=== PATIENT | female | born 1980 | race Caucasian/White ===

== ENCOUNTER 2017-09-23 10:10 | Emergency (ER) | payer OTHER ==
[2017-09-23 10:17] VITALS: BP 121/75
[2017-09-23] MEDS ORDERED: FENTANYL CITRATE INJ/PF 100 MCG/2 ML AMPUL IV ONE (10:26)
[2017-09-23] MEDS ORDERED: ASPIRIN 81 MG TABLET, CHEWABLE PO ONE (10:26)
--- NOTE | 2017-09-23 10:26 | ER Document Report ---
ED Medical Screen (RME) - General Chief Complaint: Chest Pain Stated Complaint: CHEST PAIN Time Seen by Provider: 09/23/17 10:22 Notes: RAPID MEDICAL EVALUATION DISCLOSURE I have seen this patient as part of a Rapid Medical Evaluation and, if applicable, placed any initially appropriate orders. The patient will be seen and fully evaluated, including a full history and physical exam, by a provider ( in Main ED or Fast Track) when a room becomes available. 37-year-old female recently diagnosed with right upper extremity DVT and placed on Xarelto 4 days ago (has not taken today's dose yet) here with complaints of sudden onset midsternal nonradiating chest pain and shortness of breath that started while she was at [facility] this morning. The pain is worse with breathing but not with exertion. She has no prior history of PE but she does have protein C disorder. EXAM CTAB, minimally tachypneic low 20s Minimally tachycardic, low 100s TRAVEL OUTSIDE OF THE [place] IN LAST 30 DAYS: No - Related Data Allergies/Adverse Reactions: povidone-iodine [From Betadine] Adverse Reaction (Verified 09/23/17 10:23) soap [From Betadine] Adverse Reaction (Verified 09/23/17 10:23) Past Medical History - Social History Frequency of alcohol use: None Drug Abuse: None Renal/ Medical History: Denies: Hx Peritoneal Dialysis Physical Exam - Vital signs Vitals: Temp Pulse Resp BP Pulse Ox 97.9 F 102 H 28 H 121/75 98 09/23/17 10:15 09/23/17 10:15 09/23/17 10:15 09/23/17 10:15 09/23/17 10:15 Course - Vital Signs Vital signs: Temp Pulse Resp BP Pulse Ox 97.9 F 102 H 28 H 121/75 98 09/23/17 10:15 09/23/17 10:15 09/23/17 10:15 09/23/17 10:15 09/23/17 10:15
[2017-09-23 11:03] LABS: ABSOLUTE BASOPHILS # (AUTO) 0.1 10^3/uL (0.0-0.2); ABSOLUTE EOSINOPHILS # (AUTO) 0.2 10^3/uL (0.0-0.6); ABSOLUTE LYMPHOCYTES (AUTO) 2.4 10^3/uL (0.5-4.7); ABSOLUTE MONOCYTES (AUTO) 0.7 10^3/uL (0.1-1.4); ABSOLUTE NEUT (AUTO) 5.7 10^3/uL (1.7-8.2); BASOPHILS % (AUTO) 0.6 % (0-2); EOSINOPHILS % (AUTO) 2.4 % (0-6); HEMATOCRIT 39.6 % (36.0-47.0); HEMOGLOBIN 13.1 g/dL (12.0-15.5); LYMPHOCYTES % (AUTO) 26.1 % (13-45); MEAN CORPUSCULAR HEMOGLOBIN 30.3 pg (27.0-33.4); MEAN CORPUSCULAR VOLUME 92 fl (80-97); MONOCYTES % (AUTO) 8.2 % (3-13); PLATELET COUNT 314 10^3/uL (150-450); RED BLOOD COUNT 4.32 10^6/uL (3.72-5.28); SEGMENTED NEUTROPHILS % (AUTO) 62.7 % (42-78); TOTAL CELLS COUNTED % (AUTO) 100 %
[2017-09-23 11:05] LABS: PROTHROMBIN TIME 13.7 SEC (11.4-15.4)
[2017-09-23 11:06] LABS: PARTIAL THROMBOPLASTIN TIME 31.9 SEC (23.5-35.8)
[2017-09-23 11:25] LABS: ANION GAP 11 (5-19); BLOOD UREA NITROGEN 16 mg/dL (7-20); CALCIUM 9.7 mg/dL (8.4-10.2); CARBON DIOXIDE 27 mmol/L (22-30); CHLORIDE 104 mmol/L (98-107); GLUCOSE 105 mg/dL (75-110); POTASSIUM 4.6 mmol/L (3.6-5.0); SODIUM 142.4 mmol/L (137-145)
--- NOTE | 2017-09-23 12:11 | ER Document Report ---
ED Cardiac - General Chief Complaint: Chest Pain Stated Complaint: CHEST PAIN Time Seen by Provider: 09/23/17 10:22 Notes: Patient is a 37 year old female who presents to the ED with PMH s/f RUE DVT diagnosed on saturday on Xarelto 10mg and Keflex complaining of sudden onset chest pain this am. She states she had gone to her allergy shots at approximately 10 AM and was driving to [employer] when she had sudden onset substernal chest pain, aching pressure. She states history of remote trying to catch her breath. She states that the pain is worse with deep inhalation. States that she drove over here she was too scared to drive to enable to significant pain. Past medical history significant for protein C deficiency that has led her to DVT in the past. She was previously on baby aspirin prior to diagnosis of the blood clots on Saturday and placed on the 10 mg of Xarelto. Otherwise she has a history of hypertension, hyperlipidemia. 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 Primary care is with naval TRAVEL OUTSIDE OF THE [place] IN LAST 30 DAYS: No - Related Data Allergies/Adverse Reactions: povidone-iodine [From Betadine] Adverse Reaction (Verified 09/23/17 10:23) soap [From Betadine] Adverse Reaction (Verified 09/23/17 10:23) Past Medical History - Social History Smoking Status: Never Smoker Frequency of alcohol use: None Drug Abuse: None Family History: Reviewed & Not Pertinent Patient has suicidal ideation: No Patient has homicidal ideation: No Renal/ Medical History: Denies: Hx Peritoneal Dialysis Review of Systems - Review of Systems Constitutional: No symptoms reported Cardiovascular: See HPI Respiratory: See HPI Gastrointestinal: No symptoms reported Musculoskeletal: No symptoms reported -: Yes All other systems reviewed and negative Physical Exam - Vital signs Vitals: Temp Pulse Resp BP Pulse Ox 97.9 F 102 H 28 H 121/75 98 09/23/17 10:15 09/23/17 10:15 09/23/17 10:15 09/23/17 10:15 09/23/17 10:15 - Notes Notes: PHYSICAL EXAM GENERAL: Alert, interacts well. HEAD: Normocephalic, atraumatic. EYES: Pupils equal, round, and reactive to light. Extraocular movements intact. ENT: Oral mucosa moist, tongue midline. NECK: Full range of motion. Supple. Trachea midline. LUNGS: Clear to auscultation bilaterally, no wheezes, rales, or rhonchi. No respiratory distress. HEART: Regular rate and rhythm. No murmurs, gallops, or rubs. EXTREMITIES: Moves all 4 extremities spontaneously. No edema, radial and dorsalis pedis pulses 2/4 bilaterally. No cyanosis. NEUROLOGICAL: Alert and oriented x4. Normal speech. PSYCH: Normal affect, normal mood. SKIN: Warm, dry, normal turgor. No rashes or lesions noted. Course - Re-evaluation Re-evalutation: 09/23/17 12:35 Patient is a 37-year-old female presents emergency room the chief complaint of sudden onset shortness of breath and chest pain. CTA of the chest and reviewed with radiologist show that she has a PE in the right upper lobe and the right lower lobe. Patient is not hypoxic and blood pressure is at her baseline per the patient. She was ambulated without any hypoxia. Reviewed case with warp dyeing vat tender on-call Dr. Elizabeth who agrees that patient to be initiated on standard Xarelto PE treatment of 15 mg twice daily. She is to follow-up with primary care tomorrow when she really has an established appointment and referral for Dr. Russell. Patient agrees to plan otherwise discussed strict return precautions and stable for discharge home - Vital Signs Vital signs: Temp Pulse Resp BP Pulse Ox 97.9 F 102 H 28 H 121/75 98 09/23/17 10:15 09/23/17 10:15 09/23/17 10:15 09/23/17 10:15 09/23/17 10:15 - Laboratory Result Diagrams: 09/23/17 10:35 09/23/17 10:35 - Diagnostic Test Radiology reviewed: Image reviewed, Reports reviewed - EKG Interpretation by Me EKG shows normal: Sinus rhythm Rate: Normal Rhythm: NSR When compared to previous EKG there are: No significant change Discharge - Discharge Clinical Impression: Pulmonary embolism Qualifiers: Chronicity: acute Acute cor pulmonale presence: without acute cor pulmonale Condition: Good Disposition: HOME, SELF-CARE Additional Instructions: You do have evidence of a blood clot in your lung in your right upper and right lower lobe. This is causing your chest pain. Your Xarelto dose has been increased to treat this properly. You are encouraged to keep your primary care appointment with your PCM tomorrow. Please take 10mg (one half tablet of your 20mg tablet) of you lisinopril. PLease follow up with Dr. Elizabeth after referral from your PCM Prescriptions: Morphine Sulfate [Morphine Ir 15 Mg Tablet] 15 mg PO BID #6 tablet Rivaroxaban [Xarelto] 15 mg PO BID 21 Days tablet Referrals: ALEM ELIZABETH MD [ACTIVE STAFF] - Follow up tomorrow
--- NOTE | 2017-09-23 12:19 | RADIOLOGY REPORT (SQ) ---
EXAM DESCRIPTION: CTA CHEST COMPLETED DATE/TIME: 09/23/2017 12:02 pm REASON FOR STUDY: RUE DVT 4d ago, now CP; eval PE shortness of breath, chest pain, painful respirati on COMPARISON: None. TECHNIQUE: CT scan of the chest performed using helical scanning technique with dynamic intravenous contrast injection. Images reviewed with lung, soft tissue and bone windows. Reconstructed coronal and sagittal MPR images reviewed. Additional 3 dimensional post-processing performed to develop Maximal Intensity Projection images (MO P). All images stored on PACS. All CT scanners at this facility use dose modulation, iterative reconstruction, and/or weight based d osing when appropriate to reduce radiation dose to as low as reasonably achievable (ALARA). [facility]: Dose Right [facility]: CareDose [facility]: Dose Right [facility]: Teradose 4D [facility]: SmartMenuCard CONTRAST TYPE AND DOSE: 82.5 mL of IV Isovue 370- low osmolar. Contrast bolus adequate for pulmonary arteries and aorta. RENAL FUNCTION: Creatinine 0.7 RADIATION DOSE: 59 mGy . LIMITATIONS: None. FINDINGS: LUNGS AND PLEURA: No masses, infiltrates, pneumothorax. No pleural effusions, calcificati ons. AORTA AND GREAT VESSELS: No aneurysm or dissection. HEART: No pericardial effusion. No significant coronary artery calcifications. PULMONARY ARTERIES: Emboli are present in the right middle lobe and right lower lobe segmental pulmon pedro arteries, best shown on axial images 43 through 59. No left-sided pulmonary emboli. Report call ed to Ivory Bailey in the emergency room HILAR AND MEDIASTINAL STRUCTURES: No identified masses or abnormal nodes. HARDWARE: None in the chest. UPPER ABDOMEN: No significant findings. Limited exam. THYROID AND OTHER SOFT TISSUES: No masses. No adenopathy. BONES: No acute or significant finding. 3D MIPS: Confirm above findings. OTHER: No other significant finding. IMPRESSION: Acute pulmonary emboli to the right middle and lower lobe. No acute infiltrates. No pleural effusion. No pneumothorax. No thoracic aortic dissection. COMMENT: Pertinent findings on the imaging study reported as a CRITICAL RESULT to Ivory Bailey at1 1:50 on 09/23/2017. Category of Critical Result: Pulmonary emboli Quality ID # [id number]: Final reports with documentation of one or more dose reduction techniques (e.g., Au tomated exposure control, adjustment of the mA and/or kV according to patient size, use of iterative reconstruction technique) TECHNICAL DOCUMENTATION: JOB ID: [id number] [employer]- All Rights Reserved Reading location - IP/workstation name: [email or web address]
[2017-09-23] MEDS ORDERED: RIVAROXABAN 15 MG TABLET PO ONE (12:33)
[2017-09-23] MEDS ORDERED: MORPHINE SULFATE IR 15 MG TABLET PO ONE (12:34)
--- NOTE | 2017-09-23 20:09 | EKG REPORT ---
SEVERITY:- NORMAL ECG - SINUS RHYTHM : Confirmed by: Lydia Go 23-Sep-2017 20:08:04
== END 2017-09-23 13:49 | disposition home or self-care (01) ==
LOC: ER 10:10
DX: I26.99 Other pulmonary embolism without acute cor pulmonale (principal); R07.89 Other chest pain; I10 Essential (primary) hypertension; Z79.891 Long term (current) use of opiate analgesic
CPT/HCPCS: 93005; 99285; 96374; 36415; 84703; 85025; 85610; 85730; 80048; 84484; 71275; 93010; J3010

== ENCOUNTER 2017-10-18 21:37 | Emergency (ER) | payer OTHER ==
--- NOTE | 2017-10-18 21:52 | EKG REPORT ---
SEVERITY:- NORMAL ECG - SINUS RHYTHM : Confirmed by: Gauri Sanchez MD 18-Oct-2017 21:52:08
--- NOTE | 2017-10-18 22:28 | RADIOLOGY REPORT (SQ) ---
EXAM DESCRIPTION: CHEST SINGLE VIEW COMPLETED DATE/TIME: 10/18/2017 10:17 pm REASON FOR STUDY: chest pain COMPARISON: CTA chest 09/23/2017 EXAM PARAMETERS: NUMBER OF VIEWS: One view. TECHNIQUE: Single frontal radiographic view of the chest acquired. RADIATION DOSE: NA LIMITATIONS: None. FINDINGS: LUNGS AND PLEURA: No opacities, masses or pneumothorax. No pleural effusion. MEDIASTINUM AND HILAR STRUCTURES: No masses. Contour normal. HEART AND VASCULAR STRUCTURES: Heart normal in size. Normal vasculature. BONES: No acute findings. HARDWARE: None in the chest. OTHER: No other significant finding. IMPRESSION: NO ACUTE RADIOGRAPHIC FINDING IN THE CHEST. TECHNICAL DOCUMENTATION: JOB ID: [id number] [employer]- All Rights Reserved Reading location - IP/workstation name: [email or web address]
[2017-10-18 23:12] LABS: ABSOLUTE BASOPHILS # (AUTO) 0.1 10^3/uL (0.0-0.2); ABSOLUTE EOSINOPHILS # (AUTO) 0.2 10^3/uL (0.0-0.6); ABSOLUTE MONOCYTES (AUTO) 0.8 10^3/uL (0.1-1.4); ABSOLUTE NEUT (AUTO) 4.6 10^3/uL (1.7-8.2); BASOPHILS % (AUTO) 0.8 % (0-2); EOSINOPHILS % (AUTO) 2.6 % (0-6); HEMATOCRIT 36.6 % (36.0-47.0); HEMOGLOBIN 12.7 g/dL (12.0-15.5); LYMPHOCYTES % (AUTO) 34.1 % (13-45); MEAN CORPUSCULAR HEMOGLOBIN 31.4 pg (27.0-33.4); MEAN CORPUSCULAR HGB CONC 34.7 g/dL (32.0-36.0); MEAN CORPUSCULAR VOLUME 90 fl (80-97); MONOCYTES % (AUTO) 9.5 % (3-13); PLATELET COUNT 286 10^3/uL (150-450); RED BLOOD COUNT 4.05 10^6/uL (3.72-5.28); RED CELL DISTRIBUTION WIDTH 13.6 % (11.5-14.0); TOTAL CELLS COUNTED % (AUTO) 100 %; WHITE BLOOD COUNT 8.7 10^3/uL (4.0-10.5)
[2017-10-18 23:23] LABS: ANION GAP 12 (5-19); BLOOD UREA NITROGEN 11 mg/dL (7-20); CALCIUM 9.7 mg/dL (8.4-10.2); CARBON DIOXIDE 25 mmol/L (22-30); CHLORIDE 107 mmol/L (98-107); GLUCOSE 112 mg/dL (75-110); POTASSIUM 3.9 mmol/L (3.6-5.0); SODIUM 144.1 mmol/L (137-145)
[2017-10-18 23:28] LABS: INTERNATIONAL RATION (INR) 1.38; PROTHROMBIN TIME 17.7 SEC (11.4-15.4)
[2017-10-18 23:29] LABS: PARTIAL THROMBOPLASTIN TIME 41.6 SEC (23.5-35.8)
[2017-10-18] MEDS ORDERED: FENTANYL CITRATE INJ/PF 100 MCG/2 ML AMPUL IV PRN (23:44)
[2017-10-18] MEDS ORDERED: KETOROLAC TROMETHAMINE INJ/PF 30 MG/1 ML SDV IV ONE (23:45)
--- NOTE | 2017-10-19 00:21 | ER Document Report ---
ED General - General Chief Complaint: Chest Pain Stated Complaint: CHEST PAIN Time Seen by Provider: 10/18/17 22:31 Notes: Patient is a 37-year-old female with a past medical history of a recent diagnosis of a pulmonary embolus currently on rivaroxaban who presents with chest pain. She states throughout the day today she has had intermittent, stabbing, aching pain to the right side of her chest. She states that she has had similar pain since being diagnosed with a pulmonary embolus but is more intense today than usual making her concerned that she was having worsening disease. She denies any shortness of breath, hemoptysis or syncope. Nothing improves or worsens the pain. She has not contacted her primary doctor or computer repair instructor regarding this pain. The pain is not present at the time of my initial assessment. TRAVEL OUTSIDE OF THE [place] IN LAST 30 DAYS: No - Related Data Allergies/Adverse Reactions: povidone-iodine [From Betadine] Adverse Reaction (Verified 09/23/17 10:23) soap [From Betadine] Adverse Reaction (Verified 09/23/17 10:23) Past Medical History - General Information source: Patient - Social History Smoking Status: Never Smoker Chew tobacco use (# tins/day): No Frequency of alcohol use: None Drug Abuse: None Lives with: Spouse/Significant other Family History: Reviewed & Not Pertinent Patient has suicidal ideation: No Patient has homicidal ideation: No Pulmonary Medical History: Reports: Hx Asthma Renal/ Medical History: Denies: Hx Peritoneal Dialysis Past Surgical History: Reports: Hx Section, Hx Tubal Ligation Review of Systems - Review of Systems Notes: Constitutional: Negative for fever. HENT: Negative for sore throat. Eyes: Negative for visual changes. Cardiovascular: Positive for chest pain. Respiratory: Negative for shortness of breath. Gastrointestinal: Negative for abdominal pain, vomiting or diarrhea. Genitourinary: Negative for dysuria. Musculoskeletal: Negative for back pain. Skin: Negative for rash. Neurological: Negative for headaches, weakness or numbness. 10 point ROS negative except as marked above and in HPI. Physical Exam - Vital signs Vitals: Temp Pulse Resp BP Pulse Ox 98.5 F 87 20 129/84 H 99 10/18/17 21:50 10/18/17 21:50 10/18/17 21:50 10/18/17 21:50 10/18/17 21:50 Interpretation: Normal Notes: PHYSICAL EXAMINATION: GENERAL: Well-appearing, well-nourished and in no acute distress. HEAD: Atraumatic, normocephalic. EYES: Pupils equal round and reactive to light, extraocular movements intact, sclera anicteric, conjunctiva are normal. ENT: nares patent, oropharynx clear without exudates. Moderately dry mucous membranes. NECK: Normal range of motion, supple without lymphadenopathy LUNGS: Breath sounds clear to auscultation bilaterally and equal. No wheezes rales or rhonchi. HEART: Regular rate and rhythm without murmurs ABDOMEN: Soft, nontender, normoactive bowel sounds. No guarding, no rebound. No masses appreciated. EXTREMITIES: Normal range of motion, no pitting or edema. No cyanosis. NEUROLOGICAL: No focal neurological deficits. Moves all extremities spontaneously and on command. PSYCH: Moderately anxious SKIN: Warm, Dry, normal turgor, no rashes or lesions noted. Course - Re-evaluation Re-evalutation: 10/19/17 00:20 Patient presents with progressively worsening right-sided chest pain in the setting of a known history of PE. She is currently taking Xarelto as prescribed without any missed doses. Her vitals are completely within normal limits without tachycardia, tachypnea or hypoxia. Troponin and chest x-ray are clear. Will proceed with repeat CTA and I have discussed at length the patient the risks of repeated radiation dosing with the patient prior to proceeding with this test and she is requesting the study be completed due to concerns of possible propagation of the existing PAs which I feels overall unlikely. - Vital Signs Vital signs: Temp Pulse Resp BP Pulse Ox 98.5 F 87 16 111/73 100 10/18/17 21:50 10/18/17 21:50 10/19/17 02:01 10/19/17 02:01 10/19/17 02:01 - Laboratory Result Diagrams: 10/18/17 22:55 10/18/17 22:55 Laboratory results interpreted by me: 10/18/17 10/18/17 22:55 22:55 PT 17.7 H APTT 41.6 H Glucose 112 H - Diagnostic Test Radiology reviewed: Image reviewed, Reports reviewed Radiology results interpreted by me: 10/19/17 02:30 Chest x-ray: No acute infiltrate or pneumothorax - EKG Interpretation by Me Additional EKG results interpreted by me: 10/19/17 02:31 Sinus rhythm. Rate 75. No ST elevations or depressions. QTC is 452. Discharge - Discharge Clinical Impression: Chest wall pain, History of pulmonary embolism Condition: Good Disposition: HOME, SELF-CARE Additional Instructions: The CT scan today does not show any evidence of remaining pulmonary emboli. The chest pain that you are experiencing may be due to the clots dissolving and areas of your lung being reperfused. A could alternatively be musculoskeletal chest wall pain or reflux. However, the remainder of your workup is otherwise very reassuring and does not suggest any life-threatening cause of the chest discomfort you experience today. Please follow-up with her computer repair instructor as scheduled. Return if you pass out, becomes very short of breath, begins coughing blood, or have any other symptoms that are worrisome to you.
--- NOTE | 2017-10-19 02:01 | RADIOLOGY REPORT (SQ) ---
EXAM DESCRIPTION: CT CHEST ANGIOGRAPHY WITHOUT THEN WITH IV CONTRAST CLINICAL HISTORY: 37 years Female, worsening cp, known hx pe Comparison: 09.23.17, report only. Technique: IV contrast. Coronal and sagittal reformat. 3d reconstruction. This exam was performed according to our departmental dose-optimization program, which includes automated exposure control, adjustment of the mA and/or kV according to patient size and/or use of iterative reconstruction technique.[facility]: Dose Right [facility]: CareDose [facility]: Dose Right [facility]: Teradose 4D [facility]: [employer] LIMITATIONS: None Findings: Small atelectasis or scar in the right middle lobe. No pulmonary embolus. No right ventricular strain. Clear lungs. Inferior neck, axillae, mediastinum, lungs, airway, lymphatics, heart, vasculature, upper abdomen, and musculoskeleton appear unremarkable. Impression: No pulmonary embolus. No acute cardiopulmonary findings.
[2017-10-19 02:14] VITALS: BP 111/73
== END 2017-10-19 03:15 | disposition home or self-care (01) ==
LOC: ER 21:37
DX: R07.89 Other chest pain (principal); R07.9 Chest pain, unspecified; Z98.51 Tubal ligation status; Z79.02 Long term (current) use of antithrombotics/antiplatelets; Z86.711 Personal history of pulmonary embolism
CPT/HCPCS: 93005; 99285; 96374; 96375; 36415; 85025; 85610; 85730; 80048; 84484; 71045; 71275; 93010; J3010; J1885

== ENCOUNTER 2018-08-04 11:55 | Emergency (ER) | payer OTHER ==
--- NOTE | 2018-08-04 12:41 | ER Document Report ---
ED Medical Screen (RME) - General Chief Complaint: Chest Pain Stated Complaint: CHEST PAIN Time Seen by Provider: 08/04/18 12:22 Notes: Patient is a 38-year-old female with history of PE that presents to the emergency department for chief complaint of chest pain. Patient reports this pain started about 1 hour ago, she is currently taking Xarelto and has not missed any doses, states this does feel somewhat similar to her prior pulmonary embolism, and she does have associated shortness of breath. ROS: Other than noted above, the 12 point review of systems was reviewed with the patient and were negative, all pertinent findings are included in the HPI. PHYSICAL EXAMINATION: Vital signs reviewed. GENERAL: Patient appears uncomfortable on exam. HEAD: Atraumatic, normocephalic. EYES: Pupils equal round extraocular movements intact, conjunctiva are normal. ENT: Nares patent NECK: Normal range of motion CV: Heart regular rate and rhythm LUNGS: No respiratory distress Musculoskeletal: Normal range of motion NEUROLOGICAL: Normal speech PSYCH: Appears anxious MDM: Patient seen and examined for rapid initial assessment. Vital signs reviewed. A comprehensive ED assessment and evaluation of the patient, analysis of test results and completion of the medical decision making process will be conducted by additional ED providers. *Note is created using voice recognition software and may contain spelling, syntax or grammatical errors. TRAVEL OUTSIDE OF THE [place] IN LAST 30 DAYS: No - Related Data Allergies/Adverse Reactions: povidone-iodine [From Betadine] Adverse Reaction (Verified 09/23/17 10:23) soap [From Betadine] Adverse Reaction (Verified 09/23/17 10:23) Past Medical History - Social History Chew tobacco use (# tins/day): No Frequency of alcohol use: None Drug Abuse: None Pulmonary Medical History: Reports: Hx Asthma Renal/ Medical History: Denies: Hx Peritoneal Dialysis Past Surgical History: Reports: Hx Section, Hx Tubal Ligation Physical Exam - Vital signs Vitals: Temp Pulse Resp BP Pulse Ox 98.1 F 93 22 H 163/111 H 99 08/04/18 12:05 08/04/18 12:05 08/04/18 12:05 08/04/18 12:05 08/04/18 12:05 Course - Vital Signs Vital signs: Temp Pulse Resp BP Pulse Ox 98.1 F 93 20 163/111 H 99 08/04/18 12:05 08/04/18 12:05 08/04/18 12:19 08/04/18 12:05 08/04/18 12:05
[2018-08-04 13:02] LABS: ABSOLUTE EOSINOPHILS # (AUTO) 0.2 10^3/uL (0.0-0.6); ABSOLUTE LYMPHOCYTES (AUTO) 2.8 10^3/uL (0.5-4.7); ABSOLUTE MONOCYTES (AUTO) 0.9 10^3/uL (0.1-1.4); ABSOLUTE NEUT (AUTO) 3.3 10^3/uL (1.7-8.2); BASOPHILS % (AUTO) 0.7 % (0-2); EOSINOPHILS % (AUTO) 2.9 % (0-6); HEMATOCRIT 39.1 % (36.0-47.0); HEMOGLOBIN 13.3 g/dL (12.0-15.5); MEAN CORPUSCULAR HEMOGLOBIN 29.5 pg (27.0-33.4); MEAN CORPUSCULAR HGB CONC 33.9 g/dL (32.0-36.0); MEAN CORPUSCULAR VOLUME 87 fl (80-97); MONOCYTES % (AUTO) 12.6 % (3-13); PLATELET COUNT 337 10^3/uL (150-450); RED CELL DISTRIBUTION WIDTH 15.1 % (11.5-14.0); SEGMENTED NEUTROPHILS % (AUTO) 44.8 % (42-78); TOTAL CELLS COUNTED % (AUTO) 100 %; WHITE BLOOD COUNT 7.3 10^3/uL (4.0-10.5)
[2018-08-04 13:09] LABS: INTERNATIONAL RATION (INR) 1.21; PROTHROMBIN TIME 15.9 SEC (11.4-15.4)
[2018-08-04 13:27] LABS: ALANINE AMINOTRANSFERASE 43 U/L (9-52); ALBUMIN 4.2 g/dL (3.5-5.0); ALKALINE PHOSPHATASE 106 U/L (38-126); ANION GAP 9 (5-19); ASPARTATE AMINO TRANSFERASE 34 U/L (14-36); BILIRUBIN,DIRECT 0.3 mg/dL (0.0-0.4); BILIRUBIN,TOTAL 0.4 mg/dL (0.2-1.3); BLOOD UREA NITROGEN 9 mg/dL (7-20); CALCIUM 9.9 mg/dL (8.4-10.2); CARBON DIOXIDE 30 mmol/L (22-30); CHLORIDE 101 mmol/L (98-107); GLUCOSE 100 mg/dL (75-110); SODIUM 140.3 mmol/L (137-145); TOTAL PROTEIN 7.1 g/dL (6.3-8.2)
[2018-08-04 13:39] LABS: NT PRO BNP 50 pg/mL (<125)
[2018-08-04 13:40] LABS: TROPONIN I < 0.012 ng/mL
--- NOTE | 2018-08-04 15:14 | RADIOLOGY REPORT (SQ) ---
EXAM DESCRIPTION: CTA CHEST COMPLETED DATE/TIME: 08/04/2018 3:05 pm REASON FOR STUDY: chest pain, history of PE COMPARISON: 10/19/2017 TECHNIQUE: CT scan of the chest performed using helical scanning technique with dynamic intravenous contrast injection. Images reviewed with lung, soft tissue and bone windows. Reconstructed coronal and sagittal MPR images reviewed. Additional 3 dimensional post-processing performed to develop Maximal Intensity Projection images (CA P). All images stored on PACS. All CT scanners at this facility use dose modulation, iterative reconstruction, and/or weight based d osing when appropriate to reduce radiation dose to as low as reasonably achievable (ALARA). [facility]: Dose Right [facility]: CareDose [facility]: Dose Right [facility]: Teradose 4D [facility]: [employer] CONTRAST TYPE AND DOSE: contrast/concentration: Isovue 350.00 mg/ml; Total Contrast Delivered: 89.0 ml; Total Saline Delivered: 90.0 ml Contrast bolus optimized for the pulmonary arteries. Not diagnostic for the aorta. RENAL FUNCTION: None required. The patient is less than 50 years old. RADIATION DOSE: CT Rad equipment meets quality standard of care and radiation dose reduction techniq ues were employed. CTDIvol: 28.8 - 29.8 mGy. DLP: 1008 mGy-cm. . LIMITATIONS: None. FINDINGS: LUNGS AND PLEURA: No masses, infiltrates, or pneumothorax. No pleural effusions or pleura l calcifications. AORTA AND GREAT VESSELS: No aneurysm. Contrast bolus not optimized for the aorta. HEART: No pericardial effusion. No significant coronary artery calcifications. PULMONARY ARTERIES: No emboli visualized in the main pulmonary arteries or the segmental branches. HILAR AND MEDIASTINAL STRUCTURES: No identified masses or abnormal nodes. HARDWARE: None in the chest. UPPER ABDOMEN: No significant findings. Limited exam. THYROID AND OTHER SOFT TISSUES: No masses. No adenopathy. BONES: No acute or significant finding. 3D MIPS: Confirm above findings. OTHER: No other significant finding. IMPRESSION: Negative examination for pulmonary embolism. COMMENT: Quality ID # [id number]: Final reports with documentation of one or more dose reduction techniques (e.g., Automated exposure control, adjustment of the mA and/or kV according to patient size, use of iterative reconstruction technique) TECHNICAL DOCUMENTATION: JOB ID: [id number] [employer]- All Rights Reserved Reading location - IP/workstation name: [email or web address]
[2018-08-04] MEDS ORDERED: MORPHINE SULFATE 10 MG/ML INJ IV ONE (15:22)
[2018-08-04] MEDS ORDERED: ONDANSETRON HCL INJ/PF 4 MG/2 ML SDV IV ONE (15:23)
--- NOTE | 2018-08-04 15:24 | ER Document Report ---
ED General - General Chief Complaint: Chest Pain Stated Complaint: CHEST PAIN Time Seen by Provider: 08/04/18 12:22 Mode of Arrival: Ambulatory Information source: Patient, [facility] Records Notes: 38-year-old female with history of pulmonary embolism, currently on Xarelto presents with complaint of chest pain that started 3 hours prior to arrival while the patient was driving and has improved since that time. Patient states she had a sudden onset of chest tightness that lasted approximately 90 minutes. She has had prior similar symptoms approximately 2 weeks ago. Patient denies any associated nausea, diaphoresis, lightheadedness, shortness of breath. She does report that she was recently put on steroids for elbow pain. She denies any excessive caffeine use, weight loss supplements. She states that she is currently being evaluated for late weight loss surgery. She denies missing any doses of her Xarelto. Patient does have a history of high blood pressure but was taken off of her blood pressure medication because of the Xarelto reportedly. TRAVEL OUTSIDE OF THE [place] IN LAST 30 DAYS: No - HPI Onset: Just prior to arrival Onset/Duration: Sudden, Better Quality of pain: Other - Tightness Severity: Mild Associated symptoms: Body/muscle aches, Chest pain. denies: Diarrhea, Fever, Headache, Leg swelling, Nausea, Vomiting, Shortness of breath, Sweating, Weakness Exacerbated by: Denies Relieved by: Supine Similar symptoms previously: Yes Recently seen / treated by doctor: Yes - Related Data Allergies/Adverse Reactions: povidone-iodine [From Betadine] Adverse Reaction (Verified 09/23/17 10:23) soap [From Betadine] Adverse Reaction (Verified 09/23/17 10:23) Past Medical History - General Information source: Patient, [facility] Records - Social History Smoking Status: Never Smoker Chew tobacco use (# tins/day): No Frequency of alcohol use: None Drug Abuse: None Lives with: Spouse/Significant other Family History: Reviewed & Not Pertinent Patient has suicidal ideation: No Patient has homicidal ideation: No Pulmonary Medical History: Reports: Hx Asthma Renal/ Medical History: Denies: Hx Peritoneal Dialysis Past Surgical History: Reports: Hx Section, Hx Tubal Ligation Review of Systems - Review of Systems Notes: REVIEW OF SYSTEMS: CONSTITUTIONAL : Denies fever, chills, or sweats. Denies recent illness. Denies weight loss, recent hospitalizations. EENT: Denies visual changes, eye pain. Denies sore throat, oral lesions, difficulty swallowing. CARDIOVASCULAR: Denies palpitations. Denies lower extremity edema. RESPIRATORY: Denies cough. Denies shortness of breath, wheezing. GASTROINTESTINAL: Denies abdominal pain or distention. Denies nausea, vomiting, or diarrhea. Denies blood in vomitus, stools, or per rectum. Denies black, tarry stools. Denies constipation. GENITOURINARY: Denies difficulty urinating, painful urination, frequency, blood in urine, or vaginal discharge. MUSCULOSKELETAL: Denies back or neck pain or stiffness. Denies joint pain or swelling. SKIN: Denies rash, lesions or sores. HEMATOLOGIC : Denies easy bruising or bleeding. LYMPHATIC: Denies swollen glands. NEUROLOGICAL: Denies confusion or altered mental status. Denies loss of consciousness. Denies dizziness or lightheadedness. Denies headache. Denies weakness or paralysis. Denies problems difficulty with ambulation, slurred speech. Denies sensory loss, numbness, or tingling. Denies seizures. PSYCHIATRIC: Denies anxiety or stress. Denies depression, suicidal ideation, or homicidal ideation. Denies visual or auditory hallucinations. Physical Exam - Vital signs Vitals: Temp Pulse Resp BP Pulse Ox 98.1 F 93 22 H 163/111 H 99 08/04/18 12:05 08/04/18 12:05 08/04/18 12:05 08/04/18 12:05 08/04/18 12:05 Interpretation: Hypertensive - Notes Notes: PHYSICAL EXAMINATION: GENERAL: Well-appearing, well-nourished and in no acute distress. HEAD: Atraumatic, normocephalic. EYES: Pupils equal round and reactive to light, extraocular movements intact, conjunctiva are normal. ENT: Nares patent, oropharynx clear without exudates. Moist mucous membranes. NECK: Normal range of motion, supple without lymphadenopathy LUNGS: Breath sounds clear to auscultation bilaterally and equal. No wheezes rales or rhonchi. HEART: Regular rate and rhythm without murmurs ABDOMEN: Soft, nontender, nondistended abdomen. No guarding, no rebound. No masses appreciated. Female : deferred Musculoskeletal: Normal range of motion, no pitting or edema. No cyanosis. NEUROLOGICAL: Cranial nerves grossly intact. Normal speech, normal gait. Normal sensory, motor exams PSYCH: Normal mood, normal affect. SKIN: Warm, Dry, normal turgor, no rashes or lesions noted. Course - Re-evaluation Re-evalutation: Laboratory 08/04/18 08/04/18 08/04/18 12:33 12:33 12:33 WBC 7.3 RBC 4.50 Hgb 13.3 Hct 39.1 MCV 87 MCH 29.5 MCHC 33.9 RDW 15.1 H Plt Count 337 Seg Neutrophils % 44.8 Lymphocytes % 39.0 Monocytes % 12.6 Eosinophils % 2.9 Basophils % 0.7 Absolute Neutrophils 3.3 Absolute Lymphocytes 2.8 Absolute Monocytes 0.9 Absolute Eosinophils 0.2 Absolute Basophils 0.0 PT 15.9 H INR 1.21 Sodium 140.3 Potassium 4.0 Chloride 101 Carbon Dioxide 30 Anion Gap 9 BUN 9 Creatinine 0.66 Est GFR ( Amer) > 60 Est GFR (Non-Af Amer) > 60 Glucose 100 Calcium 9.9 Total Bilirubin 0.4 Direct Bilirubin 0.3 Neonat Total Bilirubin Not Reportable Neonat Direct Bilirubin Not Reportable Neonat Indirect Bili Not Reportable AST 34 ALT 43 Alkaline Phosphatase 106 Troponin I NT-Pro-B Natriuret Pep Total Protein 7.1 Albumin 4.2 08/04/18 08/04/18 12:33 15:40 WBC RBC Hgb Hct MCV MCH MCHC RDW Plt Count Seg Neutrophils % Lymphocytes % Monocytes % Eosinophils % Basophils % Absolute Neutrophils Absolute Lymphocytes Absolute Monocytes Absolute Eosinophils Absolute Basophils PT INR Sodium Potassium Chloride Carbon Dioxide Anion Gap BUN Creatinine Est GFR ( Amer) Est GFR (Non-Af Amer) Glucose Calcium Total Bilirubin Direct Bilirubin Neonat Total Bilirubin Neonat Direct Bilirubin Neonat Indirect Bili AST ALT Alkaline Phosphatase Troponin I < 0.012 < 0.012 NT-Pro-B Natriuret Pep 50 Total Protein Albumin Chest/Abdomen CTA 08/04/18 12:29 IMPRESSION: Negative examination for pulmonary embolism. Temp Pulse Resp BP Pulse Ox 98.5 F 93 31 H 142/85 H 100 08/04/18 17:00 08/04/18 12:05 08/04/18 17:50 08/04/18 17:50 08/04/18 17:50 08/04/18 17:12 HEART Score: History-0 ECG-0 Age-0 Risk Factors-1 Troponin-0 Total: 1 If HEART score is = 3 AND both troponin measurements are normal, the 30 day r isk of a major adverse cardiac event (all-cause mortality, myocardial infarction or need for coronary revascularization) is < 1% (Sensitivity 100%, NPV 100%). Chest pain in a patient without evidence of cardiac or other serious etiology on workup today. I discussed with patient that, based on their age, risk factors and emergency department testing today, the likelihood that their symptoms are r elated to a heart attack is very low (estimated risk of heart attack or over the next 30 days of less than 1%). The patient demonstrates decision making capacity and has verbalized an understanding of these risks to me. Based on this, the patient has chosen to follow-up as an outpatient. Usual chest pain return precautions reviewed. The patient states understanding and agreement with this plan. 08/06/18 21:42 - Vital Signs Vital signs: Temp Pulse Resp BP Pulse Ox 98.5 F 93 31 H 142/85 H 100 08/04/18 17:00 08/04/18 12:05 08/04/18 17:50 08/04/18 17:50 08/04/18 17:50 - Laboratory Result Diagrams: 08/04/18 12:33 08/04/18 12:33 Laboratory results interpreted by me: 08/04/18 08/04/18 12:33 12:33 RDW 15.1 H PT 15.9 H - Diagnostic Test Radiology reviewed: Image reviewed, Reports reviewed - EKG Interpretation by Me EKG shows normal: Sinus rhythm Rate: Normal Rhythm: NSR When compared to previous EKG there are: No significant change Discharge - Discharge Clinical Impression: History of pulmonary embolism Chest pain Qualifiers: Chest pain type: unspecified Qualified Code(s): R07.9 - Chest pain, unspecified Hypertension Qualifiers: Hypertension type: unspecified Qualified Code(s): I10 - Essential (primary) hypertension Condition: Good Disposition: HOME, SELF-CARE Instructions: Chest Pain of Unclear Cause ([facility]) Additional Instructions: You were seen today for chest pain. The exact cause of your pain is unclear. However, based on your cardiac enzyme testing, chest x-ray, and EKG it does not appear that it is from an immediately life-threatening cause at this time. Although your testing here is normal is critical that you follow-up with your primary care physician for continued evaluation of this chest pain and possible stress testing. I recommended you see your physician within the next 24-48 hours to be evaluated for consideration of a stress test. Please return to emergency department immediately if you have worsening of your chest pain, shortness of breath, vomiting, become unable to exert yourself due to pain or difficulty breathing, you pass out, or have any pain that radiates into your arms, jaw, or back. Please also return if you have any additional symptoms that are concerning to you. Follow up with your [id number] hours for further care or return to the ED IMMEDIATELY if symptoms worsen or you have any concerns. If you cannot afford to follow up with your primary care physician a list of low cost clinics have been provided at the end of your discharge papers as well. Most prescribed medications have multiple side effects. The safest thing to do is when filling your prescription speak to your pharmacist regarding possible interactions with your normal home medications and over the counter medications such as Ibuprofen, Tylenol, Benadryl. If you experience any symptoms that cause you discomfort or concern you should discontinue the medication immediately and return to the emergency room or call your primary care physician. Forms: Elevated Blood Pressure
[2018-08-04 17:56] VITALS: BP 142/85
--- NOTE | 2018-08-04 21:22 | EKG REPORT ---
SEVERITY:- NORMAL ECG - SINUS RHYTHM : Confirmed by: Gauri Sanchez MD 04-Aug-2018 21:21:40
== END 2018-08-04 17:56 | disposition home or self-care (01) ==
LOC: ER 11:55
DX: R07.89 Other chest pain (principal); I10 Essential (primary) hypertension; M25.522 Pain in left elbow; J45.909 Unspecified asthma, uncomplicated; Z86.711 Personal history of pulmonary embolism; Z79.01 Long term (current) use of anticoagulants
CPT/HCPCS: 93005; 99285; 96374; 96375; 36415; 85025; 85610; 80053; 84484; 83880; 71275; 93010; J2270; J2405

== ENCOUNTER 2018-11-22 20:32 | Emergency (ER) | payer OTHER ==
[2018-11-22 20:42] VITALS: BP 137/96
== END 2018-11-22 21:05 | disposition left against medical advice (07) ==
LOC: ER 20:32
DX: Z53.21 Procedure and treatment not carried out due to patient leaving prior to being seen by health care provider (principal); R19.7 Diarrhea, unspecified; R53.1 Weakness